=== PATIENT | female | born 1960 | race Caucasian/White ===

== ENCOUNTER 2021-03-14 08:13 | Outpatient (CLI) | payer OTHER, SELFPAY ==
--- NOTE | 2021-03-14 08:20 | MM_ITS ---
WS: [id number] BILATERAL SCREENING DIGITAL MAMMOGRAM WITH CAD HISTORY: SCREENING COMPARISON: 02/28/2017, 01/25/2016 and 04/15/2012 Bilateral CC and MLO views submitted. Computer aided detection analyzed. Breast composition: There are scattered areas of fibroglandular density. No suspicious masses, microc alcifications or architectural distortion. Calcifications in the upper outer quadrants of each breast are stable. MM/[id number] IMPRESSION: BI-RADS: 2-Benign FOLLOW UP: 1 Year Follow-up
== END 2021-03-14 08:14 | disposition home or self-care (01) ==
PROVIDERS: Family Provider Family Medicine; PCP Family Medicine; Visit Provider Family Medicine
DX: Z12.31 Encounter for screening mammogram for malignant neoplasm of breast (principal)
CPT/HCPCS: 77067

== ENCOUNTER 2021-04-17 12:00 | Outpatient (CLI) | payer OTHER, SELFPAY | END 2021-04-17 12:01 | disposition home or self-care (01) | LOC: SLEEP 04-18 10:33 | PROVIDERS: Family Provider Family Medicine; PCP Family Medicine; Visit Provider Family Medicine | DX: G47.33 Obstructive sleep apnea (adult) (pediatric) (principal); G47.00 Insomnia, unspecified; R53.83 Other fatigue | CPT/HCPCS: G0399 ==

== ENCOUNTER 2021-08-03 13:30 | Outpatient (CLI) | payer OTHER, SELFPAY | END 2021-08-03 13:31 | disposition home or self-care (01) | LOC: SLEEP 13:31 | PROVIDERS: Family Provider Family Medicine; PCP Family Medicine; Visit Provider Family Medicine | DX: G47.33 Obstructive sleep apnea (adult) (pediatric) (principal); G47.00 Insomnia, unspecified; M25.50 Pain in unspecified joint; R53.83 Other fatigue | CPT/HCPCS: G0399 ==

== ENCOUNTER 2022-04-05 11:17 | Outpatient (CLI) | payer OTHER, SELFPAY ==
--- NOTE | 2022-04-05 11:30 | MM_ITS ---
WS: [id number] VIEWS: MLO and CC views both breasts. 3D digital tomosynthesis is also included in this exam. Comparison made with prior exam of 04/15/2012, 01/04/2015, 01/25/2016, 02/28/2017, 03/14/2021.. Findings: There was no sign of mass, architectural distortion or suspicious calcification in either breast. Sc attered fibroglandular densities MM/[id number] Impression: BI-RADS: 2-Benign FOLLOW-UP: 1 Year Follow-up This mammogram was also analyzed by the Computer Aided Detection System R2 Imag e Problem Manager.
== END 2022-04-05 11:18 | disposition home or self-care (01) ==
LOC: RAD 11:21
PROVIDERS: PCP Family Medicine; Visit Provider Specialist
DX: Z12.31 Encounter for screening mammogram for malignant neoplasm of breast (principal)
CPT/HCPCS: 77063; 77067